=== PATIENT | male | born 1965 | race Caucasian/White ===

== ENCOUNTER 2022-06-21 08:08 | Outpatient (CLI) | payer OTHER, SELFPAY ==
--- NOTE | 2022-07-10 18:39 | WPDSLEEPSTUD ---
Sleep Study Date of Study: 06/21/22 Ordering Provider: Rajni Henson NP Interpreting Physician: Thea Lake MD Sleep Study Type: Split Polysomnogram Height: 1.85 m Weight: 140.16 kg Body Mass Index: 40.7 Neck Circumference (inches): 18 Gustine: 4 Reason for Sleep Study Obstructive sleep apnea diagnosed in 2009, had a replacement machine 2 years ago. During the last 6 months has had increased feeling of being tired, drained and low energy. He has been waking up for no reason during the night. He is here for repeat study. Sleep History Lemuel Jalloh is a 56-year-old man who was diagnosed with obstructive sleep apnea in 2009. He has been on treatment since. A 2 years ago he received a new CPAP machine. During the last 6 months he has felt increasingly fatigued, drained and has no energy. There is a family history of sleep apnea, his brother also has this and uses CPAP. Using PAP he does not awaken from sleep feeling short of breath. He does not awaken at night with heartburn, belching or coughing. He does not snore using PAP. He occasionally has difficulty sleeping with a cold. He does not wake up gasping for breath at night or have breathing problems at night observed by others. He does not sweat excessively at night or notice his heart pounding or beating irregularly at night. He does not fall asleep during the day, does not fall asleep involuntarily or while driving. He does not have loss of muscle tone with strong emotion. He does not have daytime difficulties due to excessive sleepiness. He does not feel paralyzed on waking or falling asleep. He does not have vivid dreamlike scenes on waking or falling asleep. He does not feel afraid to go to sleep. He does not have nightmares. He occasionally remembers his dreams. He does not have racing thoughts. He occasionally feels sad, depressed or anxious. He rarely has muscular tension. He does not notice parts of his body jerking. He occasionally kicks at night. He does not have crawling or aching feelings in his legs. He occasionally has muscle cramps in his legs at night. He does not have morning jaw pain and he does not grind his teeth during sleep. He occasionally is bothered by pain during the day. He has not awaken by pain during the night. He frequently wakes up feeling stiff in the morning. He does not wake up with sore achy muscles. He frequently wakes up with pain in the neck and spine. He has headaches and fatigue. Normal bedtime is 9:30 p.m., taking 30 minutes or less to fall asleep. He typically wakes up once at night or may be not at all. When he does awaken at night, he repositioned and tries to get back to sleep. When he wakes during the night it may take him 15 minutes to return to sleep. His normal wake time is 5:30 a.m.. On weekends, he goes to bed between 10:00 p.m. and 10:30 p.m., wakes at 7:30 a.m.. He generally does not take naps in the afternoon or evening. A short nap lasting 10 or 15 minutes may be refreshing. Most of the time he feels adequate on waking. He feels better in the evening compared to other times of day. Habits: Never smoked tobacco. Caffeine 2 cups per day. No alcohol or recreational substances. PENDING SALE TO [facility] Past Medical History Medical History (Updated 05/24/22 @ 08:56 by Rajni Henson NP) Carpal tunnel syndrome on both sides HTN (hypertension) Hyperlipidemia Obesity RAÚL (obstructive sleep apnea) Prediabetes Family History Family History Mother Medical history unknown Grandparent Lung cancer Social History Social History (Updated 05/24/22 @ 08:25 by Urmila Crowder CMA) Smoking status: Never smoker Alcohol intake: current Alcohol use details: rarely Lack of Transportation: No Lack of Food: Never True Current Housing: I Have Housing Concerned About Future Housing: No Difficulty Paying Gas/Electric Bills: No Difficulty Paying for
[2022-07-10 19:29] VITALS: BMI 40.7
== END 2022-06-22 06:49 | disposition home or self-care (01) ==
LOC: ANHCSM 08:10
PROVIDERS: PCP Internal Medicine; Visit Provider Nurse Practitioner
DX: G47.33 Obstructive sleep apnea (adult) (pediatric) (principal)
CPT/HCPCS: 95811

== ENCOUNTER → 2023-07-20 06:58 | Outpatient (CLI) | payer OTHER, SELFPAY ==
--- NOTE | ~2023-07-20 | MR_ITS ---
EXAMINATION: MR knee LT wo con DATE: 07/20/2023 07:29 INDICATION: Left knee pain TECHNIQUE: Magnetic resonance imaging (MRI) of the left knee was performed without intravenous contra st. Sequences included coronal PD-weighted FSE, coronal PD-weighted FS FSE, sagittal T2-weighted FSE , sagittal PD-weighted FS FSE and axial PD weighted fat saturated FSE. COMPARISON: None. FINDINGS: Medial compartment: Complex tear involving the body and posterior horn of the medial meniscus. The posterior horn is smal l consistent with displacement or secondary degeneration of the meniscal tissue. There is full/near f ull-thickness chondral ulceration along the anterior and central weightbearing medial femoral condyle and medial half of the medial tibial plateau, both with suggestion of early remodeling of the articu lar cortex, underlying low signal intensity eburnation and a few small foci of subarticular edema-lik e signal change. Lateral compartment: Small complex tear at the posterior horn of the lateral meniscus. There is additional relatively deep chondral ulceration along the medial side of the lateral tibial plateau along the shoulder the inter condylar eminence as well as along the posterior margin of the lateral tibial plateau. Partial-thickn ess chondral fissuring along the anterior weightbearing lateral femoral condyle. No degenerative subc hondral changes. Patellofemoral compartment: Partial-thickness chondral ulceration and fissuring without degenerative subchondral changes along th e caudal half of the patellar apical ridge and medial facet. Additional trochlear partial-thickness c hondral ulceration centered along the trochlear groove where there are prominent central subchondral osteophytes. Tiny focus of subarticular edema-like signal change at the inferior aspect of the latera l trochlea. Ligaments and tendons: Anterior cruciate ligament is not visualized consistent with chronic complete tear. There is mild thi ckening and mild increased signal of the vertebral portion of the posterior cruciate ligament without discrete discontinuity suggestive of partial tear but would correlate with physical exam to assess f or degree of residual functional integrity. The medial collateral ligament and fibular collateral lig ament complex are normal. Patellar tendon is normal. Mild distal quadriceps tendinopathy. The visuali zed medial and lateral hamstring tendons as well as the iliotibial band are normal. Fluid: Small knee joint effusion with mild synovitis at the suprapatellar pouch. Moderate-sized Pleitez's cyst . No loose osteochondral bodies identified. Osseous/other: No fracture or pathologic marrow replacing process. IMPRESSION: 1. Likely chronic complete tear of the anterior cruciate ligament and suggestion of at least mild par tial tear of the posterior cruciate ligament. Correlate with physical exam to assess for degree of re sidual functional integrity of the posterior cruciate ligament. 2. Complex meniscal tears, focally at the posterior horn of the lateral meniscus and more extensive o n the body and posterior horn of the medial meniscus. 3. Tricompartmental osteoarthritis, severe with extensive high-grade chondromalacia in the medial com partment, moderate severity with moderate to high-grade chondromalacia at the lateral compartment and mild with moderate and high-grade chondromalacia in the patellofemoral compartment. 4. Likely reactive small knee joint effusion and moderate-sized Pleitez's cyst. Reviewed, dictated and finalized at location L. LABORATORY TECHNICIAN IMPRESSION: 1. Likely chronic complete tear of the anterior cruciate ligament and suggestio n of at least mild partial tear of the posterior cruciate ligament. Correlate w ith physical exam to assess for degree of residual functional integrity o
== END ==
PROVIDERS: PCP Nurse Practitioner; Visit Provider Nurse Practitioner
DX: M17.12 Unilateral primary osteoarthritis, left knee (principal); S83.232A Complex tear of medial meniscus, current injury, left knee, initial encounter; X58.XXXA Exposure to other specified factors, initial encounter
CPT/HCPCS: 73721

== ENCOUNTER 2024-08-14 00:26 | Day surgery (SDC) | payer OTHER, SELFPAY ==
[2024-08-02 14:34] VITALS: BMI 41.8
--- OUTSIDE RECORDS SUMMARY | 2024-08-14 00:29 | XMS_ITS | Continuity of Care Document ---
Author Name [facility] Organization [facility] Care Team Providers Care Candy Maker Name Role Phone [facility] Unavailable Unavailable Medications Combined list of outpatient medications from Department of Defense and Veterans Affairs facilities.Medications provided include 1) outpatient medications from the last 15 months, and 2) patient-reported medications. Medication Details Route Status Patient Instructions Prescription Expires Prescription Number Last Dispense Date Ordering Provider Order Date Order Qty Source amLODIPine 5 mg tablet See Instruct ions, # 90 EA, 3 total refill(s ), Acute Complet ed 05/23/2023 3 2023 90.0 Ambulat ory Pharmac y amLODIPine 5 mg tablet 5 mg, Oral, Daily, # 90 EA, 3 total refill(s ), Hard Stop Oral (given by mouth) Complet ed 07/06/2024 5 2024 90.0 Ambulat ory Pharmac y doxycycline hyclate 100 mg tablet 100 mg, Oral, BID, # 14 EA, 0 total refill(s ), Soft Stop Oral (given by mouth) Ordered 5 2024 14.0 Ambulat ory Pharmac y methylPREDN ISolone 4 mg tablet Dose Pack [21EA] See Instruct ions, Take as directed on package instruct ions., # 21 EA, 0 total refill(s ), Soft Stop Ordered 5 2024 21.0 Ambulat ory Pharmac y Micardis HCT 80 mg- 12.5 mg tablet See Instruct ions, # 90 EA, 3 total refill(s ), Acute Complet ed 05/23/2023 3 2023 90.0 Ambulat ory Pharmac y Micardis HCT 80 mg- 12.5 mg tablet = 1 tab(s), Oral, Daily, # 90 EA, 3 total refill(s ), Hard Stop Oral (given by mouth) Complet ed 07/06/2024 5 2024 90.0 Ambulat ory Pharmac y simvastatin 20 mg tablet See Instruct ions, # 90 EA, 3 total refill(s ), Acute Complet ed 05/23/2023 3 2023 90.0 Ambulat ory Pharmac y simvastatin 20 mg tablet 20 mg, Oral, Daily, # 90 EA, 3 total refill(s ), Hard Stop Oral (given by mouth) Complet ed 07/06/2024 5 2024 90.0 Ambulat ory Pharmac y Immunizations Combined list of available immunizations from the Department of Defense and Veterans Affairs facilities. 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 Status Comments Source influenza virus vaccine, live 2008 [id number] [employer] comple t ed influenza virus vaccine, live 02/27/09 Given Ambulat ory Pharmac y influenza virus vaccine,split 2008 [id number] sanofi pasteur complet ed influenza virus vaccine,s plit 11/05/08 Given Ambulat ory Pharmac y influenza virus vaccine,split 2008 [id number] sanofi pasteur complet ed influenza virus vaccine,s plit 11/05/08 Given Ambulat ory Pharmac y influenza virus vaccine, live 2006 [id number] [employer] comple t ed influenza virus vaccine, live 05/16/07 Given Ambulat ory Pharmac y influenza virus vaccine, live 2006 [id number] 111 [employer] comple t ed influenza virus vaccine, live 05/16/07 Given Ambulat ory Pharmac y Td (adult)-PF 2006 [id number] sanofi pasteur complet ed Td (adult)-P F 11/28/06 Given Ambulat ory Pharmac y Td (adult)-PF 2006 [id number] 113 sanofi pasteur complet ed Td (adult)-P F 11/28/06 Given Ambulat ory Pharmac y influenza virus vaccine, live 2006 Body, whole TRANSCR IBED 111 complet ed influenza virus vaccine, live 05/25/06 Given Ambulat ory Pharmac y influenza virus vaccine, live 2004 [id number] 111 [employer] comple t ed influenza virus vaccine, live 03/10/05 Given Ambulat ory Pharmac y typhoid Vi capsular polysaccharid e vac 2004 [id number] sanofi pasteur complet ed typhoid Vi capsular polysacch aride vac 03/10/05 Given Ambulat ory Pharmac y typhoid Vi capsular polysaccharid e vac 2004 [id number] sanofi pasteur complet ed typhoid Vi capsular polysacch aride vac 03/10/05 Given Ambulat ory Pharmac y influenza virus vaccine, live 2004 [id number] 111 [employer] comple t ed influenza virus vaccine, live 03/10/05 Given Ambulat ory Pharmac y influenza virus vaccine, live 2003 [id number] [employer] comple t ed influenza virus vaccine, live 04/27/04 Given Ambulat ory Pharmac y anthrax vaccine 2003 [id number] [employer] complet ed anthrax vaccine 01/15/04 Given Ambulat ory Pharmac y anthrax vaccine 2003 [id number] [employer] complet ed anthrax vaccine 01/15/04 Given Ambulat ory Pharmac y anthrax vaccine 2003 [id number] [employer] complet ed anthrax vaccine 07/11/03 Given Ambulat ory Pharmac y anthrax vaccine 2003 [id number] [employer] complet ed anthrax vaccine 07/11/03 Given Ambulat ory Pharmac y influenza virus vaccine, whole virus 2002 16 complet ed influenza virus vaccine, whole virus 04/03/03 Given Ambulat ory Pharmac y influenza virus vaccine, whole virus 2002 16 complet ed influenza virus vaccine, whole virus 04/03/03 Given Ambulat ory Pharmac y typhoid Vi capsular polysaccharid e vac 2002 [id number] sanofi pasteur complet ed typhoid Vi capsular polysacch aride vac 02/25/03 Given Ambulat ory Pharmac y anthrax vaccine 2002 [id number] [employer] complet ed anthrax vaccine 01/15/03 Given Ambulat ory Pharmac y anthrax vaccine 2002 [id number] [employer] complet ed anthrax vaccine 01/15/03 Given Ambulat ory Pharmac y anthrax vaccine 2002 [id number] [employer] complet ed anthrax vaccine 01/01/03 Given Ambulat ory Pharmac y anthrax vaccine 2002 [id number] 24 [employer] complet ed anthrax vaccine 12/18/02 Given Ambulat ory Pharmac y anthrax vaccine 2002 [id number] [employer] complet ed anthrax vaccine 12/18/02 Given Ambulat ory Pharmac y yellow fever vaccine 2002 [id number] sanofi pasteur complet ed yellow fever vaccine 12/17/02 Given Ambulat ory Pharmac y yellow fever vaccine 2002 [id number] 37 sanofi pasteur complet ed yellow fever vaccine 12/17/02 Given Ambulat ory Pharmac y tuberculin purified protein derivative 2002 zzLef t Arm [id number] 96 sanofi pasteur complet ed Patient Tolerance : Negative Ambulat ory Pharmac y tuberculin purified protein derivative 2002 [id number] 96 sanofi pasteur complet ed tuberculi n purified protein derivativ e 11/15/02 Given Ambulat ory Pharmac y meningococcal polysaccharid e (MPSV4) 2001 [id number] 32 sanofi pasteur complet ed meningoco ccal polysacch aride (MPSV4) 10/22/01 Given Ambulat ory Pharmac y tuberculin purified protein derivative 2001 zzLef t Arm [id number] 96 sanofi pasteur complet ed Patient Tolerance : Negative Ambulat ory Pharmac y meningococcal polysaccharid e (MPSV4) 2001 [id number] 32 sanofi pasteur complet ed meningoco ccal polysacch aride (MPSV4) 10/22/01 Given Ambulat ory Pharmac y tuberculin purified protein derivative 2001 [id number] 96 sanofi pasteur complet ed tuberculi n purified protein derivativ e 10/22/01 Given Ambulat ory Pharmac y influenza virus vaccine, whole virus 2000 [id number] 16 sanofi pasteur complet ed influenza virus vaccine, whole virus 03/22/01 Given Ambulat ory Pharmac y influenza virus vaccine, whole virus 2000 [id number] 16 sanofi pasteur complet ed influenza virus vaccine, whole virus 03/22/01 Given Ambulat ory Pharmac y influenza virus vaccine, whole virus 1999 16 complet ed influenza virus vaccine, whole virus 05/07/00 Given Ambulat ory Pharmac y influenza virus vaccine, whole virus [id number] [facility] complet ed influenza virus vaccine, whole virus 03/31/99 Given Ambulat ory Pharmac y influenza virus vaccine, whole virus [id number] [facility] ed influenza virus vaccine, whole virus 03/31/99 Given Ambulat ory Pharmac y typhoid vaccine, live, oral [id number] [address] [place] [address] [employer] complet ed typhoid vaccine, live, oral 05/19/98 Given Ambulat ory Pharmac y typhoid vaccine, live, oral [id number] [address] [place] [address] [employer] complet ed typhoid vaccine, live, oral 05/19/98 Given Ambulat ory Pharmac y influenza virus vaccine, whole virus [id number] 16 [facility] complet ed influenza virus vaccine, whole virus 04/02/98 Given Ambulat ory Pharmac y influenza virus vaccine, whole virus 1996 [id number] [facility] complet ed influenza virus vaccine, whole virus 03/19/97 Given Ambulat ory Pharmac y influenza virus vaccine, whole virus 1996 [id number] 16 [facility] complet ed influenza virus vaccine, whole virus 03/19/97 Given Ambulat ory Pharmac y tetanus-dipht h toxoids (Td) adult/adol 1996 09 complet ed tetanus-d iphth toxoids (Td) adult/ado l 08/29/96 Given Ambulat ory Pharmac y tetanus-dipht h toxoids (Td) adult/adol 1996 09 complet ed tetanus-d iphth toxoids (Td) adult/ado l 08/29/96 Given Ambulat ory Pharmac y tuberculin purified protein derivative 1995 [id number] [address] [facility] complet ed Patient Tolerance : Negative Ambulat ory Pharmac y tuberculin purified protein derivative 1995 [id number] [address] [facility] complet ed tuberculi n purified protein derivativ e 11/08/95 Given Ambulat ory Pharmac y hepatitis A adult vaccine 1995 [id number] [facility] hepatitis A adult vaccine 06/26/95 Given Ambulat ory Pharmac y hepatitis A adult vaccine 1995 [id number] [facility] complet ed hepatitis A adult vaccine 06/26/95 Given Ambulat ory Pharmac y typhoid, parenteral, AKD 1994 [id number] [facility] complet ed typhoid, parentera l, AKD 05/16/95 Given Ambulat ory Pharmac y typhoid, parenteral, AKD 1994 [id number] [facility] complet ed typhoid, parentera l, AKD 05/16/95 Given Ambulat ory Pharmac y influenza virus vaccine, whole virus 1994 16 complet ed influenza virus vaccine, whole virus 03/29/95 Given Ambulat ory Pharmac y influenza virus vaccine, whole virus 1994 16 complet ed influenza virus vaccine, whole virus 03/29/95 Given Ambulat ory Pharmac y hepatitis A adult vaccine 1994 52 complet ed hepatitis A adult vaccine 12/12/94 Given Ambulat ory Pharmac y hepatitis A adult vaccine 1994 52 complet ed hepatitis A adult vaccine 12/12/94 Given Ambulat ory Pharmac y hepatitis B adult vaccine 1993 [id number] [facility] complet ed hepatitis B adult vaccine 05/24/93 Given Ambulat ory Pharmac y hepatitis B adult vaccine 1993 [id number] [facility] complet ed hepatitis B adult vaccine 05/24/93 Given Ambulat ory Pharmac y yellow fever vaccine 1991 [id number] [facility] complet ed yellow fever vaccine 05/11/92 Given Ambulat ory Pharmac y yellow fever vaccine 1991 [id number] 37 [facility] complet ed yellow fever vaccine 05/11/92 Given Ambulat ory Pharmac y measles/mumps /rubella virus vaccine 1987 03 complet ed measles/m umps/rube lla virus vaccine 07/03/87 Given Ambulat ory Pharmac y measles/mumps /rubella virus vaccine 1987 03 complet ed measles/m umps/rube lla virus vaccine 07/03/87 Given Ambulat ory Pharmac y poliovirus vaccine, live, oral 1986 02 complet ed polioviru s vaccine, live, oral 08/22/86 Given Ambulat ory Pharmac y poliovirus vaccine, live, oral 1986 02 complet ed polioviru s vaccine, live, oral 08/22/86 Given Ambulat ory Pharmac y Procedures Combined list of: 1) Procedures from Department of Veterans Affairs facilities going back up to thelast 18 months, not all [place] non-surgical procedures are included; 2) All procedures from the Department of Defense facilities. Procedure Procedure Type Code Date Perfomer Comments Sourc e No data available for this section Ambulatory P harmacy Assessment and Plan Combined list of future care activities from Department of Defense and Veterans [facility] facilities (e.g., assessment and plan notes, appointments, orders, and referrals). Additional future care activities may be listed in the Plan of Care section. Result Assessment and Plan Date Source Assessment and Plan No data available for this section 08/14/2024 Ambulatory Pharmacy Functional Status Combined list of recent functional and cognitive assessments recorded at Department of Defense and Veterans Affairs ([place] Functional Pope Measurement (FIM) Scale: 1 = Total Assistance (Subject = 0% +), 2 = Maximal Assistance (Subject = 25% +), 3 = Moderate Assistance (Subject = 50% +), 4 = Minimal Assistance (Subject = 75% +), 5 = Supervision, 6 = Modified Pope (Device), 7 = Complete Pope (Timely, Safely). Assessment Date/Time Source Assessment Type Assessment Skill Assessment Score Assessment Details No data available for this section
--- OUTSIDE RECORDS SUMMARY | 2024-08-14 00:29 | XMS_ITS | Clinical Summary ---
Author Organization [facility] Address [address] [place] [address] Care Team Providers Care Rock Mason Name Role Phone Marco Cardona DO Primary Care Provider [phone] Allergies No known active allergies Medications amLODIPine (NORVASC) 5 mg tablet Be careful if taking OTCs.Take or use exactly as directed. 4 Active simvastatin (ZOCOR) 20 mg tablet Take with food/milk.Take or use exactly as directed.Obtain advice for OTCs.Do not take if .Avoid grapefruit and grapefruit juice. 4 Active multivitamin-mi nerals-lutein tablet Take 1 tablet by mouth daily Active Active Problems Problem Noted Date Diagnosed Date Carpal tunnel syndrome of right wrist 04/11/2024 Multiple actinic keratoses 01/15/2015 Overview (09/01/2017): Description: Pigmented. LN2 to 1 lesion on cheek. Vaseline PRN. Sun protect. Tinea pedis 01/15/2015 Overview (09/01/2017): Description: Lamisil PRN on toes, feet. Onychomycosis 01/15/2015 Overview (09/01/2017): Description: Declined PO medication due to possible SEs. Will use OTC topicals on feet, including periungual area. Surgical History Surgery Date Site/Laterality Comments CARPAL TUNNEL RELEASE 04/17/2024 Right Medical History Medical History Date Comments Hypertension Hyperlipidemia Sleep apnea wears CPAP Family History Medical History Relation Name Comments Hypertension Mother Relation Name Status Comments Mother Social History Tobacco Use Types Packs/Day Years Used Date Smoking Tobacco: Never Smokeless Tobacco: Never Tobacco Cessation:Counseling Given: Not Answered AUDIT-C Answer Date Recorded Q1: How often do you have a drink containing alc ohol? Monthly or less 04/17/2024 Q2: How many drinks containi ng alcohol do you have on a typical day when you are drinking? 1 or 2 04/17/2024 Q3: How often do you have si x or more drinks on one occasion? Never 04/17/2024 Personal Safety Answer Date Recorded Have you ever been in or are you currently in a harmful physical or emotional relationship or is someone making you feel afraid or unsafe? 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 Gender Identity Not on file Sexual Orientation Not on file Obstetrics History Last Filed Vital Signs Vital Sign Reading Time Taken Comments Blood Pressure 154/83 04/17/2024 10:13 AM FLIGHT COMMUNICATIONS OFFICER Pulse 61 04/17/2024 10:13 AM FLIGHT COMMUNICATIONS OFFICER Temperature 36.6 C (97.9 F) 04/17/2024 9:58 AM FLIGHT COMMUNICATIONS OFFICER Respiratory Rate 20 04/17/2024 10:13 AM FLIGHT COMMUNICATIONS OFFICER Oxygen Saturation 96% 04/17/2024 10:13 AM FLIGHT COMMUNICATIONS OFFICER Inhaled Oxygen Concentration - - Weight 140.6 kg (310 lb) 05/02/2024 8:26 AM FLIGHT COMMUNICATIONS OFFICER Height 180.3 cm (5' 11 ) 05/02/2024 8:26 AM FLIGHT COMMUNICATIONS OFFICER Body Mass Index 43.24 05/02/2024 8:26 AM FLIGHT COMMUNICATIONS OFFICER Plan of Treatment Health Maintenance Due Date Last Done Comments Colon Cancer Screening-Colonoscopy 1965 Depression Screening 1965 Hepatitis C Screening 1965 Prostate Cancer Screening-PSA 1965 Regular Well Visit/Exam 18-64 11/09/1983 Zoster Vaccine (1 of 2) 11/09/2015 Covid-19 Vaccine ( season) 2024 05/12/2021, 09/10/2020, 08/20/2020 Influenza Vaccine (#1) 2024 , 11/05/2008, 05/16/2007, Additional history exists DTaP/Tdap/Td Vaccine (2 - Td or Tdap) 05/24/2032 05/24/2022, 11/28/2006, 08/29/1996 Hepatitis B Screening Completed 05/24/1993 Pneumococcal vaccine <65 Aged Out No longer eligible based on patient's age to complete this topic Insurance [facility] CLAIM[facility] Care Teams Rock Mason Relationship Specialty Start Date End Date Marco Cardona DO PCP - General Internal Medicine 01/18/24
--- OUTSIDE RECORDS SUMMARY | 2024-08-14 00:29 | XMS_ITS | Referral Summary ---
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 Gender Identity Not on file Sexual Orientation Not on file Last Filed Vital Signs Vital Sign Reading Time Taken Comments Blood Pressure 154/83 04/17/2024 10:13 AM FUNERAL LOCATION MANAGER Pulse 61 04/17/2024 10:13 AM FUNERAL LOCATION MANAGER Temperature 36.6 C (97.9 F) 04/17/2024 9:58 AM FUNERAL LOCATION MANAGER Respiratory Rate 20 04/17/2024 10:13 AM FUNERAL LOCATION MANAGER Oxygen Saturation 96% 04/17/2024 10:13 AM FUNERAL LOCATION MANAGER Inhaled Oxygen Concentration - - Weight 140.6 kg (310 lb) 05/02/2024 8:26 AM FUNERAL LOCATION MANAGER Height 180.3 cm (5' 11 ) 05/02/2024 8:26 AM FUNERAL LOCATION MANAGER Body Mass Index 43.24 05/02/2024 8:26 AM FUNERAL LOCATION MANAGER Plan of Treatment Not on file Insurance [facility] CLAIM[facility] CLAIMS Care Teams Wire Wrapping Machine Operator Relationship Specialty Start Date End Date Marco Cardona DO PCP - General Internal Medicine 01/18/24
[2024-08-14 07:06] VITALS: BP 151/81; PULSE 74; RESP 16; TEMP 35.7; O2SAT 97; BMI 42.3
[2024-08-14] MEDS: LACTATED RINGERS 1,000 ML 150 ML IV CONT (07:15)
--- NOTE | 2024-08-14 07:34 | WPDANESEPPF ---
Anes - Initial Pre Proc Eval Procedure: Operation Date: 08/14/24 08:30 Proposed Procedures p Colonoscopy - Francis Hoyos MD Date/Time: 08/14/24 07:34 Surgeon: Francis Hoyos MD Pre Op Diagnosis: Family Hx of colon polyps, unspecified Patient Data Age: 58 Gender: M Height: 1.8 m Weight: 137.6 kg Last Vital Signs Temp 96.2 F L 08/14/24 07:06 Pulse 74 08/14/24 07:06 Resp 16 08/14/24 07:06 BP 151/81 H 08/14/24 07:06 Pulse Ox 97 08/14/24 07:06 O2 Del Method Room Air 08/14/24 07:06 Allergies Allergy/AdvReac Type Severity Reaction Status Date / Time No Known Allergies Allergy Verified 08/14/24 07:04 Home Medications ?Medication ?Instructions ?Recorded ?Confirmed ?Type CPAP #1 ea 07/25/22 08/02/24 Rx multivitamin (Multiple Vitamins 1 tablet PO DAILY 07/07/23 08/14/24 History tablet) amlodipine 5 mg tablet 5 mg PO DAILY #90 tabs 07/12/24 08/14/24 Rx simvastatin 20 mg tablet 20 mg PO DAILY #90 tabs 07/12/24 08/14/24 Rx telmisartan 80 1 tablet PO DAILY #90 tabs 07/12/24 08/14/24 Rx mg-hydrochlorothiazide 12.5 mg tablet (Micardis HCT) Patient hx anesthesia problems: none Family hx anesthesia problems: none Results Review: All pre-operative results and documents have been reviewed as part of the pre-operative evaluation. COUNT INCLUDES [facility] Past Medical History Medical History Obesity Prediabetes RAÚL (obstructive sleep apnea) HTN (hypertension) Hyperlipidemia Carpal tunnel syndrome on both sides Right 03/2024 Family History Family History Mother Medical history unknown Grandparent Lung cancer Malignant neoplasm of prostate Unknown Asthma Hypertension Heart disease Diabetes mellitus Arthritis High cholesterol Social History Social History Social History: caffeine use Smoking status: Never smoker Alcohol intake: current Alcohol use details: 1 drinks maybe a year Substance use: never Substance use type: does not use Lack of Transportation: No Lack of Food: Never True Current Housing: I Have Housing Concerned About Future Housing: No Difficulty Paying Gas/Electric Bills: No Difficulty Paying for Meds: No Currently Unemployed: No Education: Master's Degree or Higher Difficulty w/ Childcare or Family Care: No Living arrangements: with family Occupation/Education: occupation Additional occupation/education comments: [employer]- [employer] Spiritual care concerns: No Anes - Eval Final PreProcedure Day of Procedure 08/14/24 07:34 Patient weight: morbidly obese Lungs: normal air movement Airway: Mallampati scale class II Neurological: alert and oriented Last oral intake: >/= 8 hours ASA classification: III Emergent: no Anesthetic plan: proceed Anesthesia type and monitoring: general GIVS and standard monitoring Results Review: All pre-operative results and documents have been reviewed as part of the pre-operative evaluation. HTN, hyperlipidemia, RAÚL on CPAP, (mod to severe per pt). Active w walking 10K steps/day, no cp or sob. Informed Consent: The patient's anesthetic plan and its attendant risks and benefits were discussed with the patient/family/POA. Questions were solicited and answers provided to the satisfaction of the patient/family/POA.
--- NOTE | 2024-08-14 08:18 | PM.IMHP ---
H&P: HPI History of Present Illness Date/Time: 08/14/24 08:18 Chief Complaint: history of colon polyps Narrative: The patient has a history of colonic polyps, the last colonoscopy was 6 years ago. In addition, his mother was diagnosed with colonic polyps at age 70. Review of Systems Review of Systems: All systems reviewed & are unremarkable except as noted in HPI and below PMFSH Past Medical History Medical History Obesity Prediabetes RAÚL (obstructive sleep apnea) HTN (hypertension) Hyperlipidemia Carpal tunnel syndrome on both sides Right 03/2024 Family History Family History Mother Medical history unknown Grandparent Lung cancer Malignant neoplasm of prostate Unknown Asthma Hypertension Heart disease Diabetes mellitus Arthritis High cholesterol Social History Social History Social History: caffeine use Smoking status: Never smoker Alcohol intake: current Alcohol use details: 1 drinks maybe a year Substance use: never Substance use type: does not use Lack of Transportation: No Lack of Food: Never True Current Housing: I Have Housing Concerned About Future Housing: No Difficulty Paying Gas/Electric Bills: No Difficulty Paying for Meds: No Currently Unemployed: No Education: Master's Degree or Higher Difficulty w/ Childcare or Family Care: No Living arrangements: with family Occupation/Education: occupation Additional occupation/education comments: [employer] Spiritual care concerns: No Meds Home Medications and Allergies Home Medications ?Medication ?Instructions ?Recorded ?Confirmed ?Type CPAP #1 ea 07/25/22 08/02/24 Rx multivitamin (Multiple Vitamins 1 tablet PO DAILY 07/07/23 08/14/24 History tablet) amlodipine 5 mg tablet 5 mg PO DAILY #90 tabs 07/12/24 08/14/24 Rx simvastatin 20 mg tablet 20 mg PO DAILY #90 tabs 07/12/24 08/14/24 Rx telmisartan 80 1 tablet PO DAILY #90 tabs 07/12/24 08/14/24 Rx mg-hydrochlorothiazide 12.5 mg tablet (Micardis HCT) Allergies Allergy/AdvReac Type Severity Reaction Status Date / Time No Known Allergies Allergy Verified 08/14/24 07:04 Vital Signs Vital Signs - 24 hr 08/14/24 07:06 Temperature 96.2 F L Pulse Rate 74 Respiratory Rate 16 Blood Pressure 151/81 H Pulse Oximetry 97 Oxygen Delivery Room Air Exam Const: General: cooperative and healthy appearing Resp: Effort & Inspection: normal respiratory effort and able to speak in complete sentences Auscultation: clear to auscultation bilaterally Cardio: Rate: regular rate Rhythm: regular rhythm GI: Inspection: normal to inspection GI Palp: No No hepatosplenomegaly present Auscultation: normal bowel sounds Rectal Exam: deferred Skin: General skin exam: normal color Psych: Appearance: grossly normal Mental Status: mental status grossly normal Assessment and Plan Assessment and plan (1) Screening for colon cancer: Code(s): Z12.11 - Encounter for screening for malignant neoplasm of colon Status: Acute Assessment and Plan: The patient is deemed a good candidate for the procedure. Consent signed. Will proceed.
[2024-08-14 08:50] VITALS: BP 127/83; PULSE 77; RESP 18; O2SAT 96
[2024-08-14 09:00] VITALS: BP 127/71; PULSE 67; RESP 16; O2SAT 95
[2024-08-14 09:10] VITALS: BP 131/81; PULSE 60; RESP 13; O2SAT 98
== END 2024-08-14 09:25 | disposition home or self-care (01) ==
PROVIDERS: PCP Nurse Practitioner; Referring Provider Nurse Practitioner; Visit Provider Internal Medicine Gastroenterology
PROC: 0DJD8ZZ Inspection of Lower Intestinal Tract, Via Natural or Artificial Opening Endoscopic (ICD-10-PCS; CPT 45378; principal; 2024-08-14 08:30)
DX: Z12.11 Encounter for screening for malignant neoplasm of colon (principal); E78.5 Hyperlipidemia, unspecified; I10 Essential (primary) hypertension; R73.03 Prediabetes; G47.33 Obstructive sleep apnea (adult) (pediatric); G56.03 Carpal tunnel syndrome, bilateral upper limbs; E66.01 Morbid (severe) obesity due to excess calories; Z68.41 Body mass index [BMI] 40.0-44.9, adult; Z99.89 Dependence on other enabling machines and devices; Z86.0100 Personal history of colon polyps, unspecified; Z83.719 Family history of colon polyps, unspecified; Z80.1 Family history of malignant neoplasm of trachea, bronchus and lung; Z80.42 Family history of malignant neoplasm of prostate; Z82.49 Family history of ischemic heart disease and other diseases of the circulatory system
CPT/HCPCS: 45378; J2003; J2704; J7120